=== PATIENT | female | born 1990 | race Caucasian/White ===

== ENCOUNTER 2019-06-13 04:58 | Day surgery (SDC) | payer OTHER | END 2019-06-13 13:35 | disposition home or self-care (01) | LOC: CIR.AMB 04:58 | DX: K60.1 Chronic anal fissure (principal); K64.8 Other hemorrhoids; K64.4 Residual hemorrhoidal skin tags ==

== ENCOUNTER 2021-12-31 09:31 | Outpatient (CLI) | payer OTHER | END 2021-12-31 11:41 | disposition home or self-care (01) | LOC: PRENATAL 09:31 | PROVIDERS: ATTEND Obstetrics & Gynecology Maternal & Fetal Medicine | DX: O36.80X0 Pregnancy with inconclusive fetal viability, not applicable or unspecified (principal); Z14.8 Genetic carrier of other disease; Z36.0 Encounter for antenatal screening for chromosomal anomalies; Z3A.13 13 weeks gestation of pregnancy ==

== ENCOUNTER 2022-02-17 14:24 | Outpatient (CLI) | payer OTHER | END 2022-02-17 15:30 | disposition home or self-care (01) | LOC: PRENATAL 14:24 | PROVIDERS: ATTEND Obstetrics & Gynecology Maternal & Fetal Medicine | DX: O35.9XX0 Maternal care for (suspected) fetal abnormality and damage, unspecified, not applicable or unspecified (principal); O35.3XX0 Maternal care for (suspected) damage to fetus from viral disease in mother, not applicable or unspecified; Z3A.20 20 weeks gestation of pregnancy ==